=== PATIENT | female | born 2000 | race Caucasian/White ===

== ENCOUNTER 2023-06-05 12:36 | Emergency (ER) | payer BC, SELFPAY ==
[2023-06-05 12:38] VITALS: BP 147/93
[2023-06-05 14:19] VITALS: BMI 31.1
[2023-06-05] MEDS: BENADRYL 50 MG IV (14:20)
[2023-06-05] MEDS: COMPAZINE 10 MG IV (14:20)
[2023-06-05] MEDS: NSS 1000 IV (14:20)
--- NOTE | 2023-06-05 14:22 | ED.GENMED ---
History of Present Illness
General
Chief Complaint: Headache
Source: patient
Exam Limitations: none
Time Seen by Provider: 06/05/23 13:48
Nursing documentation reviewed up to this point in time: agreed with
Travel History
Have you had any contact with someone who has COVID-19?: No
Do you have any symptoms of coronavirus? Fever > 100 degrees, chills, cough, shortness of breath, sore throat, loss of taste or smell, muscle aches, or headache?: Yes
Symptoms:: see triage note
History of Present Illness
History of Present Illness:
22-year-old female states she has a headache behind her eyes the top and back of her head now 09/27. She has had a headache for the past few days, has tried ibuprofen, DayQuil, Excedrin with no improvement. She went to urgent care 2 days ago and
was put on prednisone 50 mg daily for 3 days, naproxen and Zofran as needed. She states she has had no relief. Her last Zofran was yesterday, she has not taken naproxen today. She feels nauseous but has not vomited. No history of headaches. No
history of head trauma. Denies change in vision or neck pain.
Past History
Past History
ED Past Medical History: None
ED Past Surgical History: None
Social History
Tobacco: Non-smoker
Alcohol: Occasional
Personal: Single
Employment: Employed
Review of Systems
Review of Systems
Allergies reviewed?: Yes
All Other Systems: ROS reviewed and negative except as documented in HPI and ROS
Constitutional: Denies fever
EENT: Reports no symptoms
Respiratory: Denies trouble breathing
Cardiac: Denies chest pain
ABD/GI: Reports nausea; Denies abdominal pain or vomiting
: Reports no symptoms
Musculoskeletal: Reports no symptoms
Skin: Reports no symptoms
Neurological: Reports headache; Denies dizzy, weakness or numbness
Phy Exam
Physical Exam
Physical Exam:
GENERAL: No acute distress. A&Ox3.
CONSTITUTIONAL: Afebrile.
EYES: PERRL, conjunctivae normal
Neck: Supple
ENMT: moist mucus membranes, Pharynx nl
RESPIRATORY: Regular respirations, nonlabored, lungs clear.
CARDIOVASCULAR: Regular rate and rhythm, no murmurs, no rubs.
GI: Soft, nontender, normal BS
MUSCULOSKELETAL: Moves with ease. Well perfused.
SKIN: Warm, dry, pink
PSYCH: Normal mood and affect. Well kept, interactive and appropriate
NEUROLOGIC: Awake, alert and oriented. No focal neurological deficits. Cranial nerves II through XII intact. Cerebellum intact.
Course
Orders/Labs/Results
Orders:
Orders
06/05/23 14:04
IV Insert/Care/Rem.- Treatment PRN
0.9% Sodium Chloride 1000 ml [Nss] 1,000 ml IV BOLUS
Ondansetron HCl [Zofran] 4 mg PO NOW STA
06/05/23 14:10
Diphenhydramine [Benadryl] 50 mg IV NOW STA
Prochlorperazine [Compazine] 10 mg IV NOW STA
Vital Signs
Initial and Last Documented VS:
Initial Vital Signs
Temp Pulse Resp BP Pulse Ox
98.4 F 85 18 147/93 99
06/05/23 12:38 06/05/23 12:38 06/05/23 12:38 06/05/23 12:38 06/05/23 12:38
Last Documented Vital Signs
Temp Pulse Resp BP Pulse Ox
98.4 F 67 16 120/66 98
06/05/23 12:38 06/05/23 15:31 06/05/23 15:31 06/05/23 15:31 06/05/23 15:31
MDM/Problems Addressed
Differential Diagnosis Includes:
tension h/a, migraine,
MDM/Problems Addressed:
22-year-old female states she has a headache behind her eyes the top and back of her head now 09/27. She has had a headache for the past few days, has tried ibuprofen, DayQuil, Excedrin with no improvement. She went to urgent care 2 days ago and
was put on prednisone 50 mg daily for 3 days, naproxen and Zofran as needed. She states she has had no relief. Her last Zofran was yesterday, she has not taken naproxen today. She feels nauseous but has not vomited. No history of headaches. No
history of head trauma. Denies change in vision or neck pain.
No meningeal signs
NAD, afebrile
Neuro exam is unremarkable, no focal neurological deficits. Patient ambulating well with steady gait
06/05/2023 1518 PM
Patient feeling much better after IV fluids and medications. She is comfortable going home.
Referred to neurology as needed
At discharge, patient ambulated out with normal gait.
*Critical Care Note
Total Time (30-74mins, 75-104mins- exclusive of procedures): Not Applicable
ED Attending Note
-
Portions of this chart may have been created with voice recognition software.� Occasional wrong word or��sound alike� substitutions may have occurred due to the inherent limitations of voice recognition software.
Discharge Plan
Departure
Patient Disposition: Home (Routine Discharge)
Date of Disposition: 06/05/23
Time of Disposition: 15:20
Patient with high blood pressure during this ER visit?: Yes
Condition: Good
Discharge Problem:
Generalized headache
Instructions: Headache, Adult (DC)
Referrals:
Meilssa Fernandes [Other] - Next open appointment
NONE,* [Family Provider] -
Stand Alone Forms: Return to Work
Activity Restrictions/Additional Instructions:
As we discussed, drink plenty of fluids to stay hydrated, take Tylenol or ibuprofen as needed for headache.
Follow-up with the neurologist. :
[address] [facility] [address]
[place]
[id number]

Interventions
Interventions:
*Risk Screen - Suicide Last Done: 06/05/23 12:38
*General Assessment Last Done: 06/05/23 12:38
*Neglect/Abuse Screening Last Done: 06/05/23 12:38
*ED COVID-19 Vaccine History Last Done: 06/05/23 12:38
*Nursing Disposition Last Done: 06/05/23 15:32
ED- Neurological Assessment Last Done: 06/05/23 14:27
Discharge Date and Time
Discharge Date/Time: 06/05/23 15:33
[2023-06-05 15:31] VITALS: BP 120/66
== END 2023-06-05 15:33 | disposition home or self-care (01) ==
LOC: EMR 12:36
PROVIDERS: EMERGENCY PHYSICIAN Emergency Medicine
DX: R51.9 Headache, unspecified (principal); R11.0 Nausea; R03.0 Elevated blood-pressure reading, without diagnosis of hypertension
CPT/HCPCS: 99284; 96374; 96375; 96361